=== PATIENT | female | born 1970 | race American Indian/Alaskan Native ===

== ENCOUNTER 2020-07-06 09:42 | Day surgery (SDC) | payer MEDICAID ==
[~2020-07-06 09:42] MED LIST: SODIUM CHLORIDE 0.9% 1000 ML 1,000 ML IV SCH
--- NOTE | 2020-07-06 11:38 | Anesthesia Consultation ---
Anesthesia Consult and Med Hx Date of service: 07/06/20 - Airway Anesthetic Teeth Evaluation: Good ROM Head & Neck: Adequate Mental/Hyoid Distance: Adequate Mallampati Class: Class II Intubation Access Assessment: Good - Pulmonary Exam CTA: Yes - Cardiac Exam Cardiac Exam: RRR - Pre-Operative Health Status ASA Pre-Surgery Classification: ASA2 Proposed Anesthetic Plan: MAC
--- NOTE | 2020-07-06 11:38 | Anesthesia Day of Surgery ---
Anesthesia Day of Surgery - Day of Surgery Patient Examined: Yes Patient H&P Reviewed: Yes Patient is NPO: Yes
[2020-07-06] MEDS ORDERED: propofoL 200 MG/20 ML VIAL IV ONE ×2 (12:29→13:02)
[2020-07-06] MEDS ORDERED: LIDOCAINE MPF (2%) 20 MG/1 ML VIAL 5 ML ONE (12:54)
--- NOTE | 2020-07-06 13:25 | Procedure Note ---
Date of procedure: 07/06/20 Pre-op diagnosis: Colon Polyp Screening/ F/H/O Cancer (Colon Cancer-father) Post-op diagnosis: other (Normal colon Mucosa (no Colon Polyp,Diverticuli or Colitis noted)/ Minor,Internal Hemorrhoid) Procedure: Colonoscopy Anesthesia: MAC Surgeon: MITCHELL MUSTAFA Estimated blood loss: none Pathology: none Condition: stable Disposition: same day (Resume home medication and follow up in 1 to 2 weeks ([phone]).)
--- NOTE | 2020-07-06 13:43 | Operative Report ---
PROCEDURE: Colonoscopy. INDICATIONS: This is a 50-year-old -[place] female originally from the [facility] who had a colonoscopy done as part of colon polyp screening. The patient's father had history of colon cancer. DESCRIPTION OF PROCEDURE: Colonoscopy was done after getting informed consent with MAC anesthesia. Initial rectal exam was unremarkable. Instrument was passed through the rectum onto the cecum, which was identified with ileocecal valve and the appendiceal orifice. Visualization was fair to good. The cecum was also examined on the retroverted view. No additional pathology was noted. Cecum, ascending colon, transverse colon, descending colon, and sigmoid as well as the rectum showed normal mucosa. There was no evidence of any polyps, colitis or diverticular disease. The rectum did show some minor internal hemorrhoid on the retroverted view. There was no bleeding associated with the procedure and no complications associated with the procedure. ASSESSMENT: Colon polyp screening, family history of colon cancer, the patient's father had colon cancer. Normal colon mucosa. Minor internal hemorrhoid. PLAN: To have the patient resume home medication. Follow up in the office in 1-2 weeks' time. Procedure was done in the GI lab with assistance of the GI lab team, which included Katie Valencia RN; linette Geiger and with assistance of anesthesia. JOB# [id number] GOOD/FREDDY
[2020-07-06 14:13] VITALS: BP 108/67
--- NOTE | 2020-07-06 14:20 | Post Anesthesia Evaluation ---
- Post Anesthesia Evaluation Patient Participated: Yes Airway Patent: Yes Stable Respiratory Function: Yes Nausea/Vomiting: No Temp > 96.8F: Yes Pain Manageable: Yes Adequeate Hydration: Yes Anesthesia Complications: No
== END 2020-07-06 14:25 | disposition home or self-care (01) ==
LOC: GIO 09:42
DX: Z12.11 Encounter for screening for malignant neoplasm of colon (principal); K64.8 Other hemorrhoids; Z80.0 Family history of malignant neoplasm of digestive organs
CPT/HCPCS: 45378; J2704; J7030